=== PATIENT | male | born 1955 | race Caucasian/White ===

== ENCOUNTER → 2018-11-22 | Outpatient (CLI) | payer OTHER, SELFPAY ==
[2018-11-22 13:13] VITALS: BMI 25.0
--- NOTE | 2018-11-22 13:21 | RAD_ITS ---
STUDY: X-RAY - LEFT ELBOW REASON FOR EXAM: Male, 63 years old. Elbow pain following a fall. TECHNIQUE: 3 view(s) of the elbow. COMPARISON: None. FINDINGS: Normal visualized humerus, radius and ulna. Normal radiocapitellar and ulnotrochlear articulations. The soft tissue structures are unremarkable. Evidence of prior tendon surgery overlying the proximal radius. RAD/Elbow min 3 Views IMPRESSION: No acute abnormality is seen. Electronically Signed: Carlos Merchant, at 14:15 EDT , Service support ,
== END | disposition home or self-care (01) ==
LOC: HPRAD 13:20
PROVIDERS: Family Provider Family Medicine; PCP Family Medicine; Referring Provider Physician Assistant; Visit Provider Physician Assistant
DX: S50.02XA Contusion of left elbow, initial encounter (principal)
CPT/HCPCS: 73080

== ENCOUNTER → 2020-03-24 14:27 | Outpatient (CLI) | payer BC, SELFPAY ==
[2019-01-01 17:01] VITALS: BMI 25.0
--- NOTE | 2020-03-24 14:31 | CT_ITS ---
STUDY: CT BRAIN WITHOUT CONTRAST REASON FOR EXAM: Male, 64 years old patient with headaches. New onset dizziness since change in prescription therapy for migraines. Medical history of hypertension and seizures. RADIATION DOSAGE (If Supplied By Facility): CTDIvol = ( 44.99 ) mGy, DLP = ( 897.35 ) mGycm TECHNIQUE: Transaxial CT imaging of the brain was performed without administration of intravenous contrast material. Multiplanar reformations are submitted for interpretation. Individualized dose optimization techniques were used for this CT. COMPARISON: MRI of the brain dated 04/23/2015. FINDINGS: Normal soft tissue structures. Normal calvarium. There is mild cerebral atrophy with widening of the extra-axial spaces and ventricular dilatation. Normal white matter tracts of the cerebral hemispheres. Normal basal ganglia and thalami. Normal brainstem. There is mild cerebellar atrophy. There is no intracranial hemorrhage. There are no findings of an acute ischemic infarction. 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 The frontal sinuses otherwise appear to be clear. CT/Brain/Head without Contrast IMPRESSION: 1. Chronic involutional changes of the brain. 2. No CT evidence of acute intracranial hemorrhage. Electronically Signed: Hannah Prather MD at 8:01 EDT , Service support ,
== END ==
PROVIDERS: PCP Nurse Practitioner Family; Referring Provider Nurse Practitioner Family; Visit Provider Nurse Practitioner Family
DX: R42 Dizziness and giddiness (principal); G43.909 Migraine, unspecified, not intractable, without status migrainosus; Z87.820 Personal history of traumatic brain injury
CPT/HCPCS: 70450

== ENCOUNTER 2024-04-10 08:25 | Emergency (ER) | payer MEDICARE, SELFPAY ==
[2024-04-10 08:26] VITALS: BP 143/81; PULSE 88; RESP 16; TEMP 35.7; O2SAT 98; BMI 29.3
--- NOTE | 2024-04-10 08:55 | EDS_ITS ---
HPI HPI - GI History of Present Illness Chief Complaint: Other, Pain/Inj Informant: patient Abdominal Pain/Flank Pain Onset: Days Context: Gradual Onset Timing: Continuous Current Severity: Mild Maximum Severity: Mild Narrative Narrative: 68-year-old male history of external hemorrhoids he is on no blood thinners. Recently has a flareup of his hemorrhoids with discomfort and intermittent bleeding. No heavy bleeding. He is on no blood thinners. He has had a prior hemorrhoid resection. Prior similar symptoms: Yes Recent Illness/Hospitalization: No PFSH PFSH Medical History Biceps rupture, distal Biceps repair h/o left shoulder surgery Rupture of distal biceps tendon Severe headache Shoulder pain Hemorrhoids Loss of consciousness Arthritis Home Medications ?Medication ?Instructions ?Recorded ?Last Taken ?Type carbamazepine 200 mg tablet 400 mg PO BID 10/09/16 Unknown History gabapentin 100 mg capsule 100 mg PO Q6H MIGRAINES 10/09/16 Unknown History amitriptyline 25 mg tablet 25 mg PO DAILY 10/17/20 Unknown History clkmjsfydj-hkfmyxdyvbzik-ukrbircr 1 tablet PO BID PRN 10/17/20 Unknown History 50 mg-325 mg-40 mg tablet meloxicam 15 mg tablet 15 mg PO DAILY 10/17/20 Unknown History hydrocortisone 2.5 % topical cream 1 applic [place] DAILY PRN hemorrhoids 04/10/24 Unknown Rx with perineal applicator 1 week #30 grams (Anusol-HC) Allergy/AdvReac Type Severity Reaction Status Date / Time latex Allergy Rash Verified 04/10/24 08:28 Surgical History History of microdiscectomy H/O shoulder surgery H/O arthroscopy of left knee Social History household members: spouse housing: house Smoking Status: Former smoker pack-years: 35 alcohol intake: never what type of physical activity do you participate in: walking do you feel safe at home: Yes ROS ROS ED ROS Narrative Denies recent illness. Constitutional Constitutional ED: Denies fever(s) ENT ENT ED: Denies ear pain Cardiovascular Cardiovascular: Denies chest pain Respiratory/Chest Respiratory/Chest: Denies cough Gastrointestinal Gastrointestinal: Denies abdominal pain Genitourinary Genitourinary ED: Denies dysuria Musculoskeletal Musculoskeletal: Denies arthralgias Integumentary Denies abscess Neurologic Neurologic: Denies headache(s) Psychiatric Psychiatric: Denies anxiety Endocrine Endocrinology: Denies polydipsia Hematologic/Lymphatic Hematologic/Lymphatic: Denies easy bleeding Allergic/Immunologic Allergic/Immunologic ED: Denies mouth swelling EXAM Physical Exam Narrative Exam Narrative: 70-year-old male no acute distress vital signs stable afebrile. HEENT exam unremarkable. Neck nontender. Lungs clear. Heart regular rhythm rate about 80 no murmur. Abdomen soft nontender. Moving all 4 extremities. Nontender no edema. Normal strength. Patient is awake and alert. External exam of the anus area is too large tender hemorrhoids. 1 looks thrombosed. Currently there is no active bleeding or blood. Const Vital Signs: 04/10/24 08:26 04/10/24 08:38 Temperature 96.3 F L Temperature Source Temporal Pulse Rate 88 Respiratory Rate 16 Respiratory Effort Normal Non-Labored Respiratory Pattern Normal Blood Pressure 143/81 H Blood Pressure Mean 101 Pulse Ox 98 Oxygen Delivery Method Room Air Positive well nourished and well developed; Negative for obese, cachectic, contractures or unkempt General Appearance ED: well developed; Negative for unkempt, cachectic, contractures or pallor Nutritional Appearance: Negative for cachectic or obese HEENT Reports moist mucous membranes normocephalic and atraumatic; Negative for trauma or tenderness Eyes EOMs intact bilaterally General Eye ED: Negative for pale conjunctiva or scleral icterus Neck no lymphadenopathy, supple and no JVD General: Negative for tenderness Carotids: Negative for other Resp normal respiratory effort and clear to auscultation bilaterally Effort and Inspection: Negative for respiratory distress Auscultation: Negative for rales, rhonchi or wheezes Cardio regular rate, regular rhythm, S1 normal heart sound, S2 normal heart sound and no murmurs Rate: Negative for bradycardia or tachycardic Rhythm: Negative for abnormal rhythm GI non-tender, non-distended and no masses GI Narrative: 2 large external hemorrhoids. Tender. 1 looks thrombosed. No blood or active bleeding. Inspection: Negative for abdominal distention Auscultation: normoactive bowel sounds Palpation: soft; Negative for tender, guarding or rebound tenderness present Back/Spine no CVA tenderness General Back: Negative for CVA tenderness Cervical Spine: Negative for cervical spine tenderness Thoracic Spine / Upper Back: Negative for thoracic spinal tenderness Lumbar Spine / Lower Back: Negative for lumbar spinal tenderness Extremity full ROM General Extremety ED: Negative for edema, tenderness or other findings General Extremity: Negative for edema or other findings Neuro CN's II-XII intact bilaterally and moves all extremities Sensorium / Orientation: alert, oriented to person, oriented to place and oriented to time; Negative for orientation impaired or confused Motor Exam: strength 5/5 throughout Psych mental status grossly normal and thought process normal Appearance: Negative for unkempt Attitude: No agitated Mood & Affect: Negative for depressed or anxious Skin no wounds General Skin Exam: Negative for jaundice or pallor Lesions: No no lesions Rashes: No no rashes MDM MDM MDM Narrative Medical decision making narrative: Patient with a history of external hemorrhoids prior resection. He has obviously inflamed external hemorrhoids 1 looks thrombosed. He was offered incision and drainage. Currently he is taking care of his at home and he did not want incision and drainage at this time. He realizes he may need this and/or resection. He wants to use a hemorrhoidal cream. Warm soaks. No follow-up with general surgery. Discharge Plan Triage Chief Complaint: Other, Pain/Inj Other Complaint: GI Bleed ED Provider: Mak Browne Dx/Rx/DC Orders Clinical Impression: Bleeding external hemorrhoids, External hemorrhoid, thrombosed Instructions: Thrombosed Hemorrhoids Prescriptions: New hydrocortisone [Anusol-HC] 2.5 % cream with perineal applicator 1 applic [place] DAILY PRN (Reason: hemorrhoids) 7 Days Qty: 30 0RF No Action [id number]-ygzjuoynjisvy-akql 50-325-40 mg tablet 1 tablet PO BID PRN Patient Comments: Take 1 (ONE) tab(s) Oral TWICE DAILY for 30 days as needed for headache,Instrnot to exceed 6 (SIX) tablets/day] meloxicam 15 mg tablet 15 mg PO DAILY Patient Comments: Take1 tab Oral EVERY Day for 30 days amitriptyline 25 mg tablet 25 mg PO DAILY carbamazepine 200 MG tablet 400 mg PO BID gabapentin 100 MG capsule 100 mg PO Q6H Primary Care Provider: Joaquín La COMMUNICATIONS SUPERINTENDENT Referrals: Gurdeep Frankel MD [Med Staff - Active Staff] - As soon as possible (Call their office to get in soon as possible most likely will need to have these hemorrhoids resected.) Joaquín La COMMUNICATIONS SUPERINTENDENT, COMMUNICATIONS SUPERINTENDENT-C [Primary Care Provider] - Activity Restrictions/Additional Instructions: Warm soaks in a bathtub 2-3 times a day. Hemorrhoidal cream 2 times a day. You can use the hemorrhoid cream I prescribed or also use Preparation H [id number]. Call and follow-up with general surgery, Dr. Royce Frankel, you may need to have these hemorrhoids resected or at least opened and drained. Print Language: Polish Disposition Disposition: Home, Self Care
[2024-04-10 09:05] VITALS: BP 129/67; PULSE 81; RESP 16; TEMP 36.2; O2SAT 98
== END 2024-04-10 09:05 | disposition home or self-care (01) ==
LOC: ED 08:58
PROVIDERS: Emergency Provider Emergency Medicine; PCP Nurse Practitioner Family; Visit Provider Emergency Medicine
DX: K64.5 Perianal venous thrombosis (principal); M19.90 Unspecified osteoarthritis, unspecified site; Z79.1 Long term (current) use of non-steroidal anti-inflammatories (NSAID); Z87.891 Personal history of nicotine dependence
CPT/HCPCS: 99283